=== PATIENT | male | born 1965 | race Caucasian/White ===

== ENCOUNTER → 2020-10-30 10:29 | Outpatient (CLI) | payer OTHER, SELFPAY ==
--- NOTE | ~2020-10-30 | US_ITS ---
EXAMINATION: US axilla RT EXAM DATE: 10/30/2020 11:31 INDICATION: R22.30 - Localized swelling, mass and lump right axilla. TECHNIQUE: Multiple grayscale and Doppler images of the right axilla were obtained (by a technologist who performed the scan) and subsequently reviewed. There is no prior study for comparison. FINDINGS: Scanning in right axilla symptomatic region demonstrates several solid hypoechoic masses, most likely pathologically enlarged lymph nodes. One of these measures 5.6 x 2.9 x 5.1 cm, another measures 4.8 x 3.4 x 5.0 cm. No evidence of central necrosis. IMPRESSION: Right axillary solid masses, likely pathological lymphadenopathy. Lymphoma probably most likely. Other malignancy, infection, granulomatous processes can also cause lymphadenopathy. Recomm end ultrasound-guided biopsy. CT neck, chest abdomen and pelvis with contrast should also be consider ed. Reviewed, dictated and finalized at location B. NING CONSULTANT IMPRESSION: Right axillary solid masses, likely pathological lymphadenopathy. L ymphoma probably most likely. Other malignancy, infection, granulomatous proces ses can also cause lymphadenopathy. Recommend ultrasound-guided biopsy. CT ne ck, chest abdomen and pelvis with contrast should also be considered.
== END ==
PROVIDERS: PCP Internal Medicine; Visit Provider Nurse Practitioner
DX: R22.30 Localized swelling, mass and lump, unspecified upper limb (principal)
CPT/HCPCS: 76882

== ENCOUNTER 2020-11-07 12:54 | Outpatient (CLI) | payer OTHER, SELFPAY ==
--- NOTE | ~2020-11-07 | US_ITS ---
EXAMINATION: US biopsy lymph node DATE: 11/07/2020 14:00 INDICATION: Right axillary lymphadenopathy. TECHNIQUE: The procedure including the risks, benefits, and alternatives was discussed with the patie nt. Risks discussed included bleeding and infection. The patient understood the risks and agreed to p roceed. The skin overlying the right axilla was prepped and draped in usual sterile fashion. Anesthe tic was administered with 1% lidocaine subcutaneously. An 18 gauge core biopsy needle was then used to obtain 6 core biopsy specimens under continuous sonographic guidance. The entry site was cleaned a nd dressed. There were no immediate complications. FINDINGS: Ultrasound images demonstrate the needle in a 5.3 x 3.2 x 3.3 cm right axillary lymph node. IMPRESSION: 1. Ultrasound-guided core needle biopsy of a right axillary lymph node. Reviewed, dictated and finalized at location A. CLING PROGRAM MANAGER
== END 2020-11-07 12:55 | disposition home or self-care (01) ==
LOC: ANHIMG 13:00
PROVIDERS: PCP Internal Medicine; Visit Provider Nurse Practitioner
DX: R59.0 Localized enlarged lymph nodes (principal)
CPT/HCPCS: 38505; 76942; 88305; 88333; 88342; 88365

== ENCOUNTER 2020-11-08 08:51 | Outpatient (CLI) | payer OTHER, SELFPAY ==
--- NOTE | ~2020-11-08 | CT_ITS ---
EXAMINATION: CT soft tiss nk chst ab pel w DATE: 11/08/2020 10:08 INDICATION: Generalized lymphadenopathy TECHNIQUE: Transaxial computed tomographic images of the neck, chest, abdomen, and pelvis were obtain ed after the administration of 100 cc of Omnipaque 350 intravenous contrast. The dose-length product (DLP) was 1735.72 mGy-cm. Automated exposure control and iterative reconstruction technique were empl oyed. COMPARISON: None FINDINGS: NECK CT: There are no pathologically enlarged lymph nodes of the neck. The visualized paranasal sinuses are cl ear. The orbits are normal. There is moderate cervical spondylosis. CHEST CT: Pathologically enlarged right axillary lymph nodes measure up to 2.9 cm in short axis. Ultrasound-cary ded biopsy was performed yesterday. There is also right subpectoral lymphadenopathy. No additional th oracic lymphadenopathy is identified. The lungs are free of acute opacities. There is no pleural effu tova or pneumothorax. The heart size is normal. ABDOMEN/PELVIS CT: The liver, spleen, pancreas, gallbladder, and adrenal glands are normal. Cysts of the kidneys measure up to 1.5 cm on the left. There is a 6 mm nonobstructing stone of the right kidney. A punctate 1 mm nonobstructing stone is present in the lower pole of the left kidney. No pathologically enlarged abdo ethel or pelvic lymph nodes are identified. There is no free intraperitoneal gas or evidence of bowel obstruction. Colonic diverticulosis is present without evidence of diverticulitis. The appendix is n ormal. There is a small fat-containing umbilical hernia. Mild lumbar spondylosis is noted. IMPRESSION: 1. Right axillary and subpectoral lymphadenopathy which could reflect lymphoma, metastatic disease, o r reactive lymphadenopathy. Biopsy results are pending. No additional lymphadenopathy identified in t he neck, chest, abdomen, or pelvis. 2. Bilateral nonobstructing nephrolithiasis. Reviewed, dictated and finalized at location A. R SYSTEMS ADMINISTRATOR IMPRESSION: 1. Right axillary and subpectoral lymphadenopathy which could reflect lymphoma, metastatic disease, or reactive lymphadenopathy. Biopsy results are pending. N o additional lymphadenopathy identified in the neck, chest, abdomen, or pelvis. 2. Bilateral nonobstructing nephrolithiasis.
[2020-11-08 10:21] LABS: Estimated Glomerular Filt Rate > 60
== END 2020-11-08 08:52 | disposition home or self-care (01) ==
PROVIDERS: PCP Internal Medicine; Visit Provider Nurse Practitioner
DX: R59.1 Generalized enlarged lymph nodes (principal); N20.0 Calculus of kidney
CPT/HCPCS: 70491; 71260; 74177; Q9967

== ENCOUNTER 2020-11-20 08:13 | Outpatient (CLI) | payer OTHER, SELFPAY ==
--- NOTE | 2020-11-20 08:15 | ECG_ITS ---
Measurements Intervals [place] Rate: 79 P: 19 RI: 122 QRS: 29 QRSD: 110 T: 56 QT: 332 QTc: 382 Interpretive Statements SINUS RHYTHM BORDERLINE ST-T WAVE ABNORMALITY- INFERIOR LEADS BASELINE ARTIFACT- I, II, III, AVR, AVL,A VF BORDERLINE ECG Electronically Signed On 11-20-2020 9:12:53 CDT by Jesus Belle D.O.
== END 2020-11-20 08:14 | disposition home or self-care (01) ==
LOC: ANHSURGERY 08:16
PROVIDERS: PCP Internal Medicine; Visit Provider Surgery
DX: I10 Essential (primary) hypertension (principal); Z01.818 Encounter for other preprocedural examination; R94.31 Abnormal electrocardiogram [ECG] [EKG]
CPT/HCPCS: 93005

== ENCOUNTER → 2020-11-21 01:52 | Outpatient (CLI) | payer OTHER, SELFPAY ==
[2020-11-21 19:27] LABS: SARS-CoV-2 RNA PCR Negative
== END ==
PROVIDERS: PCP Internal Medicine; Visit Provider Surgery
DX: Z01.812 Encounter for preprocedural laboratory examination (principal); Z20.822 Contact with and (suspected) exposure to COVID-19
CPT/HCPCS: C9803; U0003; U0005

== ENCOUNTER 2020-11-24 02:23 | Day surgery (SDC) | payer OTHER, SELFPAY ==
[2020-11-19 08:32] VITALS: BMI 27.6
[2020-11-24] VITALS (10 sets, daily range): BP systolic 124–156; BP diastolic 64–93; PULSE 58–106; RESP 10–16; TEMP 36.4–36.7; O2SAT 97–100; BMI 27.3
[2020-11-24] MEDS: LACTATED RINGERS 1,000 ML 30 ML IV CONT ×2 (10:45→13:23)
--- NOTE | 2020-11-24 11:16 | WPDANESEPPF ---
Anes - Initial Pre Proc Eval Procedure: Operation Date: 11/24/20 12:30 Proposed Procedures p Excisional Biopsy Of Right Axillary Lymphadenopathy - Hellen Kiran MD Date/Time: 11/24/20 11:16 Surgeon: Hellen Kiran MD Pre Op Diagnosis: Right Axillary Lymphadenopathy Patient Data Age: 55 Gender: M Height: 6 ft 1 in Weight: 95 kg Allergies Allergy/AdvReac Type Severity Reaction Status Date / Time iron AdvReac Unknown Unknown Verified 11/24/20 10:29 Home Medications Medication Instructions Recorded Confirmed Type sildenafil 100 mg tablet 100 mg PO DAILY PRN #30 tablet 10/23/19 11/19/20 Rx alprazolam 0.25 mg tablet 0.25 mg PO TID PRN #90 tablet 06/23/20 11/24/20 Rx trandolapril 4 mg PO BID 11/19/20 11/24/20 History Patient hx anesthesia problems: none Family hx anesthesia problems: none PMFSH Past Medical History Medical History Anemia, hemolytic, thalassemia minor Impaired glucose tolerance Screening for colon cancer Surgical History Surgical History H/O discectomy C4. 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 Questions were solicited and answers provided to the satisfaction of the patient/family/POA.
--- NOTE | 2020-11-24 12:16 | WPDHPUPDATE1 ---
History and Physical Update Update Date/Time: 11/24/20 12:16 History and Physical has been reviewed, including an updated exam of the patient. There are NO changes in the patient's condition. Risks, benefits, and alternatives have been discussed and questions answered. Patient agrees to proceed with procedure.
[2020-11-24] MEDS: ceFAZolin 2 GM/D5W 50 ML 2 GM/50 ML BAG IVPB (12:25)
--- NOTE | 2020-11-24 13:04 | SUR.OPER ---
specimen given to nick in lab by judy cherry at [id number]
--- NOTE | 2020-11-24 13:47 | PM.PROC ---
Procedure Note - Detailed Date of procedure: 11/24/20 Pre-op diagnosis: Right Axillary Lymphadenopathy Post-op diagnosis: same Procedure performed: Excisional biopsy right axillary lymph node Description of procedure: The patient was taken to the operating room placed in the supine position. After adequate induction of general anesthesia, the patient was prepped and draped in the normal sterile fashion. A time-out was then done to verify the patient's identity, as well as the procedure being performed. I began by localizing the around right axilla. I made an incision into right axilla and took this incision through the axillary fascia. Once in the axillary space, there was noted to be multiple enlarged lymph. The largest the was approximately the size of a golf ball. I went ahead and bluntly dissected around this lymph node. Once I found the vascular stalk, I went ahead and cauterized and transected the stalk. The lymph node was then full and sent to pathology. I did receive call from the pathology that the specimen would be adequate for diagnosis. At this point, I copiously irrigated the cavity and hemostasis was noted. I then closed the axillary fascia with a 3 Vicryl suture. The skin was then closed with 4 Monocryl subcuticular suture. Dermabond was then placed on the wound. Patient tolerated the procedure well and was extubated in the operating room postop. He will be transferred to the recovery room in stable condition. Anesthesia: GLMA Surgeon: Hellen Kiran MD Estimated blood loss (mL): 10 Drains: No Packing: No Pathology: yes Complications: No immediate complications Condition: stable Disposition: PACU Findings: multiple enlarged LN in R axilla, biopsy sent fresh
[2020-11-24] MEDS: fentaNYL CITRATE INJ (*CRX) 100 MCG/2 ML VIAL 25 MCG IV PUSH (13:55)
[2020-11-24] MEDS: ONDANSETRON INJ 4 MG/2 ML VIAL IV PUSH (14:25)
[2020-11-24] MEDS: oxyCODONE HCL (*CRX) 5 MG TAB IR PO (14:48)
== END 2020-11-24 15:15 | disposition home or self-care (01) ==
PROVIDERS: PCP Internal Medicine; Visit Provider Surgery
PROC: (CPT 38525; principal; 2020-11-24 12:30)
DX: C81.04 Nodular lymphocyte predominant Hodgkin lymphoma, lymph nodes of axilla and upper limb (principal); D56.3 Thalassemia minor
CPT/HCPCS: 38525; 88184; 88305; 88333; 88342; 93005; A9270; C9803; J0690; J1100; J2405; J2704; J3010; J7120; U0003; U0005

== ENCOUNTER 2020-12-02 10:53 | Outpatient (CLI) | payer OTHER, SELFPAY ==
[2020-12-02 11:11] LABS: Basophils Absolute Auto 0.1 K/mm3 (0.0-0.1); Basophils Percent Auto 0.6 % (0.2-1.2); Eosinophils Percent Auto 0.3 % (0-4.4); Hematocrit 40.4 % (42.0-52.0); Hemoglobin 12.6 g/dL (14.0-18.0); Immature Granulocyte Absolute 0.03 K/mm3 (0.00-0.031); Immature Granulocyte Percent A 0.3 % (0-0.5); Lymphocytes Absolute Auto 1.94 K/mm3 (0.9-3.2); Lymphocytes Percent Auto 19.3 % (18.3-44.2); Mean Corpuscular HGB Conc 31.2 g/dl (32-36); Mean Corpuscular Hemoglobin 20.5 pg (26-34); Mean Corpuscular Volume 65.6 fl (80-100); Mean Platelet Volume 8.9 fl (7.4-10.4); Monocytes Absolute Auto 0.8 K/mm3 (0.1-0.6); Monocytes Percent Auto 8.2 % (2.6-8.5); Neutrophils Absolute Auto 7.2 K/mm3 (1.3-6.7); Neutrophils Percent Auto 71.3 % (45.5-73.1); Platelet Count Result 255 k/mm3 (150-375); Red Blood Count 6.16 M/mm3 (4.6-6.20); Red Cell Distribution Width 19.6 % (11.5-14.5); White Blood Count 10.1 K/mm3 (4.5-10.0)
[2020-12-02 11:17] LABS: Blood Urea Nitrogen 13 mg/dL (8-26); Carbon Dioxide 26 mmol/L (22-30); Chloride 104 mmol/L (98-109); Estimated Glomerular Filt Rate > 60; Glucose 99 mg/dL (70-105); Potassium 4.1 mmol/L (3.5-4.9); Sodium 140 mmol/L (138-146)
[2020-12-02 15:31] LABS: Alanine Aminotransferase 26 U/L (4-50); Albumin Level 4.3 g/dL (3.5-5.1); Alkaline Phosphatase 59 U/L (38-126); Anion Gap 8 mmol/L (8-16); Aspartate Amino Transferase 21 U/L (17-59); Bilirubin,Total 0.4 mg/dL (0.2-1.3); Blood Urea Nitrogen 14 mg/dL (9-20); Calcium 9.6 mg/dL (8.4-10.2); Carbon Dioxide 25 mmol/L (22-30); Chloride 106 mmol/L (98-107); Estimated Glomerular Filt Rate > 60; Glucose 100 mg/dL (75-110); Lactate Dehydrogenase 321 U/L (313-618); Potassium 4.4 mmol/L (3.4-5.0); Sodium 139 mmol/L (137-145); Uric Acid 5.5 mg/dL (3.5-8.5)
[2020-12-02 15:34] LABS: Erythrocyte Sedimentation Rate 4 mm/hr (0-20)
== END 2020-12-02 10:54 | disposition home or self-care (01) ==
LOC: ANHLAB 10:55
PROVIDERS: PCP Internal Medicine; Visit Provider Internal Medicine Hematology & Oncology
DX: C81.04 Nodular lymphocyte predominant Hodgkin lymphoma, lymph nodes of axilla and upper limb (principal)
CPT/HCPCS: 36415; 80048; 80053; 83615; 84550; 85025; 85652

== ENCOUNTER 2020-12-09 11:42 | Outpatient (CLI) | payer OTHER, SELFPAY ==
--- NOTE | ~2020-12-09 | PE_ITS ---
EXAMINATION: PET skull to mid thigh DATE: 12/09/2020 13:27 INDICATION: Nodular lymphocytic predominant Hodgkin's lymphoma TECHNIQUE: Blood glucose level was 84 mg/dL. 11.799 mCi of 18-fluorodeoxyglucose (18-FDG) was adminis tered i.v. Low dose computed tomography (CT) images were acquired from the base of the brain to the p roximal thighs for attenuation correction and anatomic localization. Positron emission tomography (PE T) images were acquired in the same distribution beginning 54 minutes after injection. Images includi ng fused PET/CT images were reconstructed in axial, coronal, and sagittal planes. Automated exposure control technique was employed. The dose-length product was 758.92mGy-cm. COMPARISON: CT study dated 11/08/20 FINDINGS: Head/neck: There is symmetric increased activity in the nares, oral cavity, palatine tonsils, laryngeal muscles and ocular muscles without CT correlate, likely physiologic. No pathologically enlarged cervical lym phadenopathy or suspicious foci of increased FDG uptake in the visualized head or neck. Chest: There are multiple enlarged and FDG avid right axillary subpectoral lymph nodes. 2 of the largest and most intensely FDG avid included a more caudal 3.8 x 2.8 cm lymph node with maximal SUV of 10.5 and a 2.7 x 2.1 cm lymph node more centrally in the cluster with maximal SUV of 11.0. There is respirator y motion with mild subsegmental atelectasis in the dependent lungs. No suspicious pulmonary nodules, pneumonia or pleural effusion. Heart size is normal. No pericardial effusion. Thoracic aorta is jeanette l in caliber. Aside from at the right axilla there is no other pathologically enlarged or FDG avid th oracic lymphadenopathy. Abdomen/pelvis/proximal thighs: Physiologic renal accumulation and excretion of FDG activity in the kidneys, bladder and along portio ns of ureters. Normal degree and heterogenous pattern of increased uptake throughout the liver withou t radiologic correlate or dominant FDG avid lesion. The gallbladder, pancreas, spleen and bilateral a drenal glands are normal. Mild uptake scattered throughout the bowels without radiologic correlate, a lso likely physiologic. There is moderate colonic diverticulosis with a sigmoid predominance. There i s no adjacent inflammatory change to suggest diverticulitis. No other abnormal foci of increased FDG uptake or pathologically enlarged lymphadenopathy in the abdomen, pelvis or proximal thighs. Small b ilateral fat-containing inguinal hernias. Musculoskeletal: No suspicious lytic, blastic or FDG avid bone lesions. Mild likely degenerative synovial uptake at th e right sacroiliac joint and to a lesser degree at the periphery of the bilateral glenohumeral joints . There is also mild increased uptake overlying the bilateral greater trochanters consistent with tro chanteric bursitis. IMPRESSION: 1. Cluster of multiple enlarged and moderate to markedly FDG avid right axillary and subpectoral lymp h nodes consistent with biopsy-proven lymphoma. No other evident disease in the neck, chest, abdomen or pelvis. Reviewed, dictated and finalized at location B. IMPRESSION: 1. Cluster of multiple enlarged and moderate to markedly FDG avid right axillar y and subpectoral lymph nodes consistent with biopsy-proven lymphoma. No other evident disease in the neck, chest, abdomen or pelvis.
[2020-12-09 12:08] LABS: Glucose Point of Care 84 (65-105)
== END 2020-12-09 11:43 | disposition home or self-care (01) ==
PROVIDERS: PCP Internal Medicine; Visit Provider Internal Medicine Medical Oncology
DX: C81.04 Nodular lymphocyte predominant Hodgkin lymphoma, lymph nodes of axilla and upper limb (principal)
CPT/HCPCS: 78815; A9552

== ENCOUNTER 2022-03-08 11:21 | Emergency (ER) | payer OTHER, SELFPAY ==
[2022-03-08 11:30] VITALS: BP 138/87; PULSE 94; RESP 16; TEMP 37.1; O2SAT 100
--- NOTE | 2022-03-08 11:42 | ED.SKABFB ---
HPI - Skin/Abscess/Foreign Bdy General Chief complaint: Skin/Abscess/Foreign Body Stated complaint: body rash Time Seen by Provider: 03/08/22 11:42 Source: patient Mode of arrival: ambulatory Limitations: no limitations History of Present Illness HPI narrative: 57-year-old male presented for complaints of rash to arms, abdomen, and swelling around eyes for 2 days working outside. States eyes feel itchy and have clear draiange. He took Benadryl last night but states it causes drowsiness. He denies lip, tongue, or throat swelling or itching, breath or dizziness. MD complaint: rash Related Data Allergies Allergy/AdvReac Type Severity Reaction Status Date / Time iron AdvReac Unknown Unknown Verified 01/07/22 07:45 Review of Systems Review of Systems: CONSTITUTIONAL: Denies body aches, fever, chills, or sweats. EYES: Denies visual changes, reports swelling and clear drainage ENT: Denies rhinorrhea, congestion, sore throat, or otalgia. CARDIOVASCULAR: Denies chest pain, palpitations, or edema. RESPIRATORY: Denies cough or dyspnea. GASTROINTESTINAL: Denies abdominal pain, nausea, vomiting, or diarrhea. GENITOURINARY: Denies dysuria or hematuria. SKIN: reports rash, itching MUSCULOSKELETAL: Denies back pain, joint pain, or myalgia. NEUROLOGIC: Denies headache, numbness, tingling, or weakness. [facility], LAT[facility] Past Medical History Medical History Anemia, hemolytic, thalassemia minor Hodgkins lymphoma Impaired glucose tolerance Screening for colon cancer Surgical History Surgical History H/O discectomy C4. 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 Please see nursing chart for further information. There is no relevant family history pertinent to the presenting complaint Exam Narrative: GENERAL: Well-appearing EYES: PERRLA, conjunctivae clear, and EOMI. Bilateral mild periorbital swelling and erythema, clear drainage, no purulence ENT: Mucous membranes moist. Oropharynx without edema, erythema or lesions. CHEST: Clear to auscultation. No respiratory distress. HEART: Regular rate and rhythm. SKIN: Warm, dry. Patches of erythematous papular rash to arms and hands, left abdomen c/w contact dermatitis NEURO: Alert and oriented x3. Course Course Emergency Course: Patient is aware of diagnosis, understands and agrees to treatment plan. Anticipatory guidance given. Patient agrees to follow-up as directed and is aware of reasons to seek care at the emergency department. Portions of this record may have been created with voice recognition software Level of Care: Express Care Visit Vital Signs Vital signs: Vital Signs Temperature 98.8 F 03/08/22 11:30 Pulse Rate 94 03/08/22 11:30 Respiratory Rate 16 03/08/22 11:30 Blood Pressure 138/87 03/08/22 11:30 Pulse Oximetry 100 03/08/22 11:30 Temperature 98.8 F 03/08/22 11:30 Pulse Rate 94 03/08/22 11:30 Respiratory Rate 16 03/08/22 11:30 Blood Pressure 138/87 03/08/22 11:30 Pulse Oximetry 100 03/08/22 11:30 Reviewed MDM - Skin/Abscess/Foreign Bdy MDM Narrative
== END 2022-03-08 11:54 | disposition home or self-care (01) ==
PROVIDERS: Emergency Provider Nurse Practitioner Family; PCP Internal Medicine
DX: L25.9 Unspecified contact dermatitis, unspecified cause (principal); D56.3 Thalassemia minor; Z85.71 Personal history of Hodgkin lymphoma; R73.02 Impaired glucose tolerance (oral)
CPT/HCPCS: 99213; G0463

== ENCOUNTER 2023-02-15 10:31 | Outpatient (CLI) | payer OTHER, SELFPAY ==
--- NOTE | 2023-02-21 16:29 | WPDHOLTEREM ---
Holter/Event Monitor Holter/Event Monitor Date of procedure: 02/15/23 Holter/Event Procedure: 48 Hr Holter Monitor Indications: Tachycardia Conclusion: 1. 48 hour holter monitor on 02/15/23. 2. Underlying rhythm is sinus rhythm. HR range 50-160 bpm; average HR 93 bpm. HR at 160 bpm was at 12:32. 3. There are 102 premature supraventricular complexes and 10 supraventricular couplets. No supraventricular tachycardia. 4. There are 12 premature ventricular complexes. There is 1 episode of monomorphic ventricular tachycardia at 250 bpm lasting 4 beats. 5. No sinoatrial or atrioventricular blocks. No significant pauses greater than 2 seconds. 6. No symptoms available for correlation.
== END 2023-02-15 10:32 | disposition home or self-care (01) ==
LOC: ANHCARD 10:32
PROVIDERS: PCP Family Medicine; Visit Provider Nurse Practitioner
DX: R00.0 Tachycardia, unspecified (principal)
CPT/HCPCS: 93225; 93226